=== PATIENT | male | born 1970 | race Caucasian/White ===

== ENCOUNTER 2017-06-10 14:22 | Inpatient (IN) | payer OTHER ==
[2017-06-10] MEDS ORDERED: MAGNESIUM HYDROXIDE 30 ML UDCUP PO PRN (18:08)
[2017-06-10] MEDS: DIAZEPAM 5 MG TAB PO SCH (19:36)
[2017-06-10] MEDS: MIRTAZAPINE 15 MG TAB PO SCH (19:36)
[2017-06-10] MEDS: risperiDONE 2 MG TAB PO SCH (19:37)
[2017-06-10] MEDS: ACETAMINOPHEN 325 MG TAB PO PRN (19:37)
[2017-06-10] MEDS: OLANZapine 5 MG TAB PO PRN (21:35)
[2017-06-11] MEDS: DIAZEPAM 5 MG TAB PO SCH ×2 (08:22→20:01)
[2017-06-11] MEDS ORDERED: FLU VACC QS 2017-18 (3YR+)/PF 0.5 ML SYR (FLUARIX QUAD) IM ONE (08:32)
[2017-06-11] MEDS: OLANZapine 5 MG TAB PO PRN ×3 (09:20→23:23)
[2017-06-11] MEDS: MAG HYDROX/AL HYDROX/SIMETH 30 ML UDCUP PO PRN (10:46)
--- NOTE | 2017-06-11 15:02 | BCON ---
[f rep st] BEHAVIORAL HEALTH CONSULTATION INTERNAL MEDICINE CONSULTATION DATE OF CONSULTATION: 06/11/2017 REFERRING PHYSICIAN: Thee Adame MD REASON FOR REFERRAL: Medical clearance for inpatient behavioral health stay. HISTORY OF PRESENT ILLNESS: This patient was transferred from the [facility]. He had been admitted there after reporting command hallucinations for self harm and to hurt his host home provider. He had been irritable for several days related to his desire for independent living and being denied the opportunity to do this. He was evaluated by the mental health team and admitted for further psychiatric care. He currently has no complaints. PAST MEDICAL HISTORY: 1. Asthma. 2. Gastroesophageal reflux disorder. 3. He reports sleep apnea but he denies that he has been treated with a CPAP mask. 4. Developmental delay. PAST SURGICAL HISTORY: He has had a ventral hernia repair. MEDICATIONS: Prior to admission: 1. Omeprazole. 2. Montelukast. 3. Risperidone. 4. Albuterol metered dose inhaler. 5. Mirtazapine. 6. Ergocalciferol. ALLERGIES: There are no known drug allergies. SOCIAL HISTORY: He was living with in a host home. He is a nonsmoker and does not use alcohol. REVIEW OF SYSTEMS: He thinks that he has disturbed sleep due to sleep apnea. He denies that he has asthma, though he is being treated for it. He denies cough or dyspnea, fevers or chills. He reports he has had weight loss recently and he has had a reduced appetite. He denies nausea, vomiting, constipation, or diarrhea. Otherwise, a 10-point review of systems is negative. PHYSICAL EXAM: VITAL SIGNS: Blood pressure is 102/61, heart rate is 75, respiratory rate is 16, oxygen saturation is 90% on room air. This was at 6 a.m. Temperature was 36.3 degrees centigrade. His weight is 86.2 kg for a body mass index of 28.1. GENERAL: This is an overweight appearing man, appears his chronologic age, cooperative and in no acute distress. HEENT: Extraocular movements are intact. Pupils are equal, round, reactive to light. Mucous membranes are moist. Dentition is in fair condition with 2 missing teeth in his anterior mandible. He has a crowded airway, Mallampati class 4. NECK: Supple. HEART: There is a regular rate and rhythm. He is tachycardic. There are no murmurs, rubs, or gallops. LUNGS: Clear to auscultation bilaterally. ABDOMEN: Benign. EXTREMITIES: There is no cyanosis, clubbing, or edema. Radial and dorsalis pedis pulses are 2+ bilaterally. NEUROLOGIC: He is alert and oriented x3. He is dysarthric. He has reduced verbal expansion. There is no focal weakness. Sensation is intact to light touch. LABORATORY STUDIES: From the [facility]: CBC was normal. Basic metabolic profile revealed normal renal function and electrolytes. He had a slightly elevated glucose, but this was likely nonfasting. Urinalysis was completely normal. Urine drug screen was positive for benzodiazepines but otherwise negative for substances of abuse. TSH was normal. Chest x-ray was normal. ASSESSMENT/RECOMMENDATIONS: 1. Mental health issues, pending further evaluation and management per Psychiatry and the mental health team. 2. Chronic conditions of gastroesophageal reflux disorder and asthma. Continue current medications. 3. Weight loss, per report. Would advise observation for normal oral intake. With normal TSH, if he continues to lose weight, he should have routine age- appropriate cancer screening. 4. Question of sleep apnea. I believe he was indicating that it was diagnosed through his primary care provider. If this can be confirmed, then it would be appropriate to refer him for an overnight sleep study to determine whether he would benefit from a continuous positive airway pressure or other intervention. I see no medical contraindication to this patient's continued stay in the inpatient behavioral health unit or to any psychiatric medications or procedures. Thank you very much for including me in the care of this patient. Please do not hesitate to contact me or the hospitalist service should there be need for further medical evaluation. /[id number]/MODL MTDD
[2017-06-11] MEDS: ACETAMINOPHEN 325 MG TAB PO PRN (16:53)
--- NOTE | 2017-06-11 17:08 | BAPA ---
[f rep st] ADMISSION PSYCHIATRIC ASSESSMENT Evaluation 06/11/2017. CHIEF COMPLAINT: "I am only here because they thought I wasn't taking my medications." HISTORY OF PRESENT ILLNESS: Patient is a 46-year-old male with history of developmental de lay, likely representing mild mental retardation, and mental health diagnoses of psychosis and PTSD. He is staying at what he describes as a respite home in [place] with a family and states that he has been there for a year and a half. He reports becoming upset recently "because all I do is sit in my room and watch TV." He states he does not often leave the home. He has no outside activities or pro grammed activities, and he repeatedly states that he wants to get his own apartment. The [facility] report indicates that he had a discussion with his host family about his moving out and was informed that he was required to stay there and could not go to live in an apartment by himself and became upset. He threatened to kill himself by cutting his wrists and also stated he was hearing voices telling him t o harm himself and others. He has a history of at least 10 previous suicide attempts, mostly by cutt ing, and his close family was concerned. He was then taken to [place] [facility], where he was evaluated and placed on an M1 hold. He was ultimately transferred to our facility from [place], s they did not admit him because of his developmental disability. When I speak with the patient sonam mina, he states that he is no longer hearing these voices and that he wants to leave the hospital. He s tates that he still wants to live by himself in an apartment and reports to me that he did this for a year and a half in the past. He is unable to give very accurate timelines, but he states that he wo rked a job at [employer] for 16 years and has not worked at all in more than 20 years. During this time, he apparently lived in an apartment for 1-2 years by his report, though it is unclear when. He , himself, admits he has a history of being accused of medication noncompliance, "because they find m y pills on the floor." He states that this happened recently at his current host home, and he claims that he dropped them on the floor inadvertently. He then admits that he does not like to take the m irtazapine because it is a large pill. He claims to be compliant with the rest of his medications. He denies any other specific stresses at this time. He states that he sometimes has nightmares, and the chart indicates that he has hypervigilance, flashbacks, and intrusive memories as well, consisten t with previous traumas and diagnosis of PTSD. Patient states that he feels safe in this hospital an d, while he does not want to be here, that he is not going act to harm himself. PAST PSYCHIATRIC HISTORY: Significant for being followed in [place] or, possibly, [place] by a Dr. Souza. The patient states that he does not like Dr. Souza but gives no other information. The r ecord does not indicate what outpatient providers the patient has or what overall program he is invol kye with in [place]. He has a reported history of multiple previous hospitalizations, due to self-kelsy sukhwinder, and a history of suicide attempts and cutting in the past. Patient states he has not done this for more than 20 years, but this is a fairly common response to any question regarding time for him. ALLERGIES: No known medical allergies. CURRENT MEDICATIONS: Include Risperdal 4 mg daily, diazepam 5 mg at h.s. and 2.5 mg daily, and manuela zapine 30 mg h.s., though it is unclear whether he has been taking this or not. PAST MEDICAL HISTORY: Asthma, gastroesophageal reflux disorder, and sleep apnea, but he states he do es not wear a CPAP mask, and has developmental delay. SOCIAL HISTORY: Patient lives at a host home, assumably through a program, but he does not have an a wareness of what the program might be. His educational level is unknown. He denies any history of a ggression, assaults, or legal problems. He denies any history of substance use, including tobacco. He states he drinks alcohol "once a year on [place]." He reports enjoying "collecting things. 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 Patient does not note any mental illness. ADMISSION LABORATORY: No labs were drawn here. Labs drawn at [facility] were reviewed, w ith no abnormalities noted. MENTAL STATUS EXAMINATION: A thin, though healthy-appearing male. He is dressed casually but appropriately. He interacts well with the examiner, maintaining good eye contact and a calm and pleasant demeanor. He does demonstrate rather high level of psychomotor activity, tapping his feet f requently and shifting in his seat. This appears to be more anxiety than akathisia, as he demonstrat es no other evidence of extrapyramidal side effects or tardive dyskinesia. He admits to feeling anxi ous. His speech is somewhat dysarthric, difficult to understand at times, but he is able to communic ate effectively. His affect is constricted, stable, and appropriate. His mood is described as "fine ." His thought process is linear and goal directed. His thought content reveals a report of command auditory hallucinations, though he states he is not hearing these at this time. He is alert and gwyn ented to person, place, time, and situation, and his sensorium is clear. His intellect does appear t o be below average, as evidenced by his educational/occupational histories, fund of knowledge, and vo cabulary. He denies any thoughts of suicide, homicide, or violence currently, but he does endorse th ose yesterday. He denies any intent or plan to harm anyone in his host home. His insight and judgme nt appear to be marginal. IMPRESSION: Unspecified psychosis, intellectual disability, posttraumatic stress disorder, stress wi thin his primary living circumstance, recent homicidal and suicidal thoughts. Patient is a 46-year-old male with a history of intellectual disability, psychosis, and thr eats of self-harm and harm to others. He presents on transfer from [facility] after ellie g been brought there from his host home. It is difficult to ascertain exactly what the inciting fact or was, given that his circumstance has not changed for some time, it seems, but on this particular d ay, he talked to his host family about moving out and then became very angry when he was told he coul d not. This does not seem to necessarily represent an overall decompensation of his illness and may be able to be dealt with in the context of his program. I am completely unaware of what his program is and what resources there are, and we are therefore going to find that out. PLAN: 1. Admit to the Behavior Health Services Inpatient Unit on an M1 hold. 2. Continue patient's previous outpatient medications as prescribed. I will attempt to identify his outpatient prescriber and contact that person personally. 3. Identify the structure of his program and obtain his current treatment and behavioral plans. Teri robins may help us with not only his management on the unit but in helping him transition back home. Estimated length of stay is 3-5 days. /[id number]/MODL
[2017-06-11] MEDS: MIRTAZAPINE 15 MG TAB PO SCH (20:01)
[2017-06-11] MEDS: risperiDONE 2 MG TAB PO SCH (20:01)
[2017-06-12] MEDS: DIAZEPAM 5 MG TAB PO SCH ×2 (08:45→21:14)
[2017-06-12] MEDS: OLANZapine 5 MG TAB PO PRN ×2 (11:02→17:11)
--- NOTE | 2017-06-12 12:40 | SOAPPROG ---
SOAP Progress Note Assessment/Plan: Assessment: Plan: 06/12/17 12:38 Pt is doing better with no current SI/HI. Anxiety persists. He is agreeable to staying through the [facility] until arrangements can be made to transition back to host home. CCM. Subjective: Pt seen, discussed with staff. He reports no sleep last night though staff observed eight hours. He remains rather anxious, but in good behavioral control. He is compliant with all therapies and meds. No behavioral issues. Objective: Vital Signs Temp Pulse Resp BP Pulse Ox 36.6 C 76 14 91/51 L 93 06/12/17 06:00 06/12/17 06:00 06/12/17 06:00 06/12/17 06:00 06/12/17 06:00 MSE: Calm, coop. Affect is constricted anxious. Mood is "good." TP is linear. TC reveals no psychosis. Denies SI/HI/. - Time Spent With Patient Time Spent With Patient: 25" ICD10 Worksheet Patient Problems: Problems Problem Status Onset Unspecified psychosis Acute - ICD10 Problem Qualifiers (1) Unspecified psychosis
[2017-06-12] MEDS: SODIUM CL NASAL 45 ML BTL EACHNARE PRN (15:37)
[2017-06-12] MEDS: ACETAMINOPHEN 325 MG TAB PO PRN (17:09)
[2017-06-12] MEDS: risperiDONE 2 MG TAB PO SCH (21:15)
[2017-06-12] MEDS: MIRTAZAPINE 15 MG TAB PO SCH (21:15)
[2017-06-13] MEDS: ACETAMINOPHEN 325 MG TAB PO PRN (08:20)
[2017-06-13] MEDS: DIAZEPAM 5 MG TAB PO SCH ×2 (08:20→19:50)
[2017-06-13] MEDS: SODIUM CL NASAL 45 ML BTL EACHNARE PRN (08:22)
[2017-06-13] MEDS: OLANZapine 5 MG TAB PO PRN ×3 (10:50→23:52)
--- NOTE | 2017-06-13 14:31 | SOAPPROG ---
SOAP Progress Note Assessment/Plan: Assessment: Per Dr. Baptiste's note: 06/12/17 12:38 Pt is doing better with no current SI/HI. Anxiety persists. He is agreeable to staying through the [facility] until arrangements can be made to transition back to host home. CCM. Subjective: Pt seen, discussed with staff. He reports no sleep last night though staff observed eight hours. He remains rather anxious, but in good behavioral control. He is compliant with all therapies and meds. No behavioral issues. Plan: 06/13/17 14:29 1. CCM -patient stable, needs prompts but willing to follow staff directions 2. Anxious to leave hospital, but agreeable to staying through w/e Subjective: Met with patient, reviewed chart and d/w staff. Patient is sitting on couch drinking milk. He chose not to attend art therapy this AM. He denies any physical complaints. States he wants to leave hospital. Understands that he needs to demonstrate self-control and compliance with meds prior to d/c. So far , he has been able to do both today. He denies any SI/HI. Objective: Vital Signs Temp Pulse Resp BP Pulse Ox 36.3 C 114 H 12 108/71 93 06/13/17 06:00 06/13/17 09:40 06/13/17 09:40 06/13/17 09:40 06/13/17 09:40 MSE: Affect: Euthymic Mood: "OK" TP: Goal-directed TC: Denies any SI/HI Insight/Judgment: Poor - Time Spent With Patient Time Spent With Patient: 20" - Pending Discharge Pending Discharge Within 24 Hours: No Pending Discharge Within 48 Hours: No ICD10 Worksheet Patient Problems: Problems Problem Status Onset Unspecified psychosis Acute
[2017-06-13] MEDS: MAG HYDROX/AL HYDROX/SIMETH 30 ML UDCUP PO PRN (16:44)
[2017-06-13] MEDS: MIRTAZAPINE 15 MG TAB PO SCH (19:50)
[2017-06-13] MEDS: risperiDONE 2 MG TAB PO SCH (19:51)
[2017-06-14] MEDS: DIAZEPAM 5 MG TAB PO SCH ×2 (08:58→19:18)
[2017-06-14] MEDS: ACETAMINOPHEN 325 MG TAB PO PRN (08:59)
[2017-06-14] MEDS: OLANZapine 5 MG TAB PO PRN ×2 (08:59→16:51)
[2017-06-14] MEDS: SODIUM CL NASAL 45 ML BTL EACHNARE PRN (09:00)
--- NOTE | 2017-06-14 13:13 | SOAPPROG ---
SOAP Progress Note Assessment/Plan: Assessment: Per Dr. Baptiste's note: 06/12/17 12:38 Pt is doing better with no current SI/HI. Anxiety persists. He is agreeable to staying through the [facility] until arrangements can be made to transition back to host home. CCM. Subjective: Pt seen, discussed with staff. He reports no sleep last night though staff observed eight hours. He remains rather anxious, but in good behavioral control. He is compliant with all therapies and meds. No behavioral issues. Plan: 06/13/17 14:29 1. CCM -patient stable, needs prompts but willing to follow staff directions 2. Anxious to leave hospital, but agreeable to staying through w/e 06/14/17 13:10 1. Change to voluntary status 2. Refusing to attend groups, needs multiple prompts from staff 3. Not eating food b/c it "doesn't taste good," will only eat snacks 4. Slept "better" last night - 7hrs Subjective: Met with patient, reviewed chart and d/w staff. Patient is not attending groups and won't eat meals b/c "the food here doesn't taste good." Needs multiple prompts from staff to attend to ADLs. He denies any SI/HI, says he no longer has any urges or intent to harm his host family. Says he will be "good" and cooperate if he goes back to host family now. The only question he has for MD is "when can I leave." Objective: Vital Signs Temp Pulse Resp BP Pulse Ox 36.2 C 83 14 95/64 L 93 06/14/17 06:00 06/14/17 06:00 06/14/17 06:00 06/14/17 06:00 06/14/17 06:00 MSE: Affect: Euthymic Mood: "OK" TP: Tangential, perseverative about discharge TC: No SI/HI, no acute psychotic sxs Insight/Judgement: Impaired - Time Spent With Patient Time Spent With Patient: 15" - Pending Discharge Pending Discharge Within 24 Hours: No Pending Discharge Within 48 Hours: No ICD10 Worksheet Patient Problems: Problems Problem Status Onset Unspecified psychosis Acute
[2017-06-14] MEDS: risperiDONE 2 MG TAB PO SCH (19:17)
[2017-06-14] MEDS: MIRTAZAPINE 15 MG TAB PO SCH (19:18)
[2017-06-15 06:49] VITALS: BP 91/61; PULSE 99; RESP 16; TEMP 97.9; O2SAT 91
[2017-06-15] MEDS: SODIUM CL NASAL 45 ML BTL EACHNARE PRN (08:32)
[2017-06-15] MEDS: ACETAMINOPHEN 325 MG TAB PO PRN (08:33)
[2017-06-15] MEDS: DIAZEPAM 5 MG TAB PO SCH (08:33)
[2017-06-15] MEDS: OLANZapine 5 MG TAB PO PRN (08:33)
--- NOTE | 2017-06-15 20:54 | BDS ---
[f rep st] BEHAVIORAL HEALTH DISCHARGE SUMMARY REASON FOR ADMISSION: Patient is a 46-year-old male with a history of developmental disord er, bipolar disorder, and PTSD. He was admitted from home after he threatened to harm himself and hi s host family. He apparently had gotten into an argument with his host family because he was cheekin g his medications and had been asking to move into an apartment of his own. A full description of e events preceding admission can be found in his admission history dated 06/11/2017. ADMITTING DIAGNOSES: Unspecified psychosis, intellectual disability, posttraumatic stress disorder, stress with his primary living circumstance, recent homicidal and suicidal thoughts. ADMITTING PHYSICAL EXAMINATION: Performed by Dr. Cole Vaughn. Revealed no acute physical findin gs. ADMISSION LABORATORY: Patient was transferred from [facility]. No additional labs were drawn. HOSPITAL COURSE: Patient was admitted to behavioral health services inpatient unit on an M1 hold. Jocy snu was pleasant and cooperative and participated actively in most 1-on-1 interactions. He was very he sitant to go to group and stated that he got anxious, but was noticed on many occasions to be standin g at the door of the group room or several steps away if they were meeting in a common area. He kept to himself and did not speak much to others, not socializing significantly. He refused to eat most meals, stating that he did not like the way the food tasted, though would eat snacks. He would eat s ome amount of real food if staff spent particular time coaxing him. When asked about this by me toda y prior to discharge, he states that he was "trying to lose 10 pounds." Patient was continued on his previous outpatient medication and took this without problem. He did no t seem to cheek those by staff observation and stated to me that he intended to continue to take them regularly when he got home. We were in communication with his case loader operator, and this person told us that she felt he had ambivalent feelings about moving into his own apartment. He apparently had an appointment to go with his case loader operator to look at apartments on the day he was admitted. Patient's hospitalization was uncomplicated. He displayed no behavioral dysregulation, aggression, o r agitation. He was compliant with his medications and stated that he was having no thoughts of suic ashok or harming his host family. His host family was in contact with regular senior care provider and stated that they were happy for him to return as he was always very well behaved and pleasant. The patient reported hearing command auditory hallucinations telling him to harm himself and others p rior to admission. He stated that these resolved fairly quickly, and he did not report them after th e first day in the hospital. CONDITION ON DISCHARGE: Stable. He was having no thoughts of suicide, homicide, or violence. He wa s compliant with his medications and taking them without complaint or side effect. DISCHARGE MEDICATIONS: Diazepam 2.5 mg daily and 5 mg at h.s., trazodone 100 mg at h.s., Risperdal 3 mg at h.s., and mirtazapine 30 mg at h.s. DISCHARGE DIAGNOSES: Unspecified psychosis, posttraumatic stress disorder, and recent homicidal and suicidal thoughts. DISPOSITION: Patient left in an Uber to go back to his host home in [place]. FOLLOWUP: With his current outpatient providers arranged by regular senior care provider. I confirmed the patient received his discharge instructions and followup appointments at the time of discharge. Patient was converted to a voluntary basis at the expiration of his M1 hold. Patient's attitude at the time of discharge was upbeat and happy. Patient's advance directives are on file in our chart. He was a full code throughout his admission. There were no pending labs or studies at the time of his discharge. /[id number]/MODL
== END 2017-06-15 14:06 | disposition home or self-care (01) | DRG 885 ==
LOC: BBEH 17:08
PROVIDERS: ADMIT Psychiatry & Neurology Psychiatry; ATTEND Psychiatry & Neurology Psychiatry
DX: F29 Unspecified psychosis not due to a substance or known physiological condition (principal); F43.10 Post-traumatic stress disorder, unspecified; J45.909 Unspecified asthma, uncomplicated; K21.9 Gastro-esophageal reflux disease without esophagitis; G47.30 Sleep apnea, unspecified; Z23 Encounter for immunization
CPT/HCPCS: G0008